=== PATIENT | male | born 1955 | race Caucasian/White ===

== ENCOUNTER 2021-02-06 16:15 | Emergency (ER) | payer MEDICARE ==
[~2021-02-06 16:15] MED LIST: AUGMENTIN 875-1 EACH PO; ELIQUIS2.5 MG PO; LIPITOR40 M1 PO; [UNRECOGNIZED DRUG - OTHER] PO
[2021-02-06 17:10] LABS: BASOPHIL 0.9 % (0-2); EOSINOPHIL 6.2 % (0-7); HCT 43.3 % (42.0-52.0); HGB 14.4 g/dl (13.2-18.0); LYMPHOCYTE 12.8 % (15-48); MCHC 33.3 g/dL (32.0-36.0); MCV 93.1 fL (78.0-100.0); MONOCYTE 8.5 % (0-12); MPV 10.2 fL (6.0-9.5); NEUTROPHIL 71.2 % (41-80); NRBC 0; PLT 290 K/uL (150-400); RBC 4.65 M/uL (4.70-6.00); RDW 12.9 % (11.5-14.0)
[2021-02-06 17:18] LABS: INR 1.02 (0.9-1.2); PROTHROMBIN TIME 12.7 SECONDS (11.4-13.6)
[2021-02-06 17:19] LABS: ALBUMIN 3.4 g/dL (3.4-5.0); BILIRUBIN - TOTAL 0.6 mg/dL (0.2-1.0); CREATININE 0.96 mg/dL (0.67-1.17); GLOBULIN (CALCULATION) 3.7 g/dL; MAGNESIUM 2.2 mg/dL (1.8-2.4); POTASSIUM 4.2 mmol/L (3.5-5.1); TOTAL PROTEIN 7.1 g/dL (6.4-8.2)
[2021-02-06 17:27] LABS: PRO-BNP 33 pg/mL (<125)
== END 2021-02-06 19:32 | disposition home or self-care (01) ==
LOC: FER 16:15
PROVIDERS: Nurse Practitioner Family
DX: R06.02 Shortness of breath (principal); Z95.5 Presence of coronary angioplasty implant and graft; Z86.711 Personal history of pulmonary embolism; Z79.82 Long term (current) use of aspirin; Z79.899 Other long term (current) drug therapy
CPT/HCPCS: 36415; 71045; 71275; 80053; 83735; 83880; 84484; 85025; 85379; 85610; 93005; J7030; Q9967